=== PATIENT | female | born 1995 | race Caucasian/White ===

== ENCOUNTER 2024-04-22 08:11 | Emergency (ER) | payer OTHER, SELFPAY ==
--- NOTE | ~2024-04-22 | US_ITS ---
EXAMINATION: US PELVIS CLINICAL INFORMATION: Left ovary cyst, abnormal CT COMPARISON: CT abdomen and pelvis 04/14/2024 TECHNIQUE: Ultrasound of the pelvis is performed using both transabdominal and transvaginal transducers along with Doppler. Transvaginal imaging is performed due to inadequate visualization transabdominally. FINDINGS: Uterus: The uterus is anteverted and measures 8.3 x 3.4 x 4.5 in the sagittal, AP and transverse dimensions. The endometrium is homogeneous and mildly thickened measuring 1.7 cm. No focal myometrial lesions. Nabothian cysts in the cervix. Adnexa: Both ovaries are visualized. Right ovary measures 2.8 x 1.7 x 2.1 with a volume of 5 ml. Left ovary measures 3.1 x 2.6 x 2.2 with a volume of 9 ml. There is a corpus luteal cyst within the left ovary measuring 1.9 x 1.4 x 1.8 cm, for which no dedicated follow-up imaging is required. Normal arterial and venous spectral waveforms in bilateral ovaries. Small amount of pelvic free fluid likely physiologic. US/US pelvic ovarian doppler IMPRESSION: Small corpus luteal cyst within the left ovary, for which dedicated follow-up imaging is required. Otherwise unremarkable sonographic appearance of bilateral ovaries. Mildly thickened endometrium measuring up to 1.7 cm. Clinical correlation is recommended. Electronically signed by: Kvng Ng MD 04/22/2024 02:22 PM EDT
--- NOTE | ~2024-04-22 | US_ITS ---
EXAMINATION: US PELVIS CLINICAL INFORMATION: Left ovary cyst, abnormal CT COMPARISON: CT abdomen and pelvis 04/14/2024 TECHNIQUE: Ultrasound of the pelvis is performed using both transabdominal and transvaginal transducers along with Doppler. Transvaginal imaging is performed due to inadequate visualization transabdominally. FINDINGS: Uterus: The uterus is anteverted and measures 8.3 x 3.4 x 4.5 in the sagittal, AP and transverse dimensions. The endometrium is homogeneous and mildly thickened measuring 1.7 cm. No focal myometrial lesions. Nabothian cysts in the cervix. Adnexa: Both ovaries are visualized. Right ovary measures 2.8 x 1.7 x 2.1 with a volume of 5 ml. Left ovary measures 3.1 x 2.6 x 2.2 with a volume of 9 ml. There is a corpus luteal cyst within the left ovary measuring 1.9 x 1.4 x 1.8 cm, for which no dedicated follow-up imaging is required. Normal arterial and venous spectral waveforms in bilateral ovaries. Small amount of pelvic free fluid likely physiologic. US/US pelvic and transvaginal IMPRESSION: Small corpus luteal cyst within the left ovary, for which dedicated follow-up imaging is required. Otherwise unremarkable sonographic appearance of bilateral ovaries. Mildly thickened endometrium measuring up to 1.7 cm. Clinical correlation is recommended. Electronically signed by: Kvng Ng MD 04/22/2024 02:22 PM EDT
--- NOTE | ~2024-04-22 | CT_ITS ---
EXAMINATION: CT ABDOMEN AND PELVIS WITH CONTRAST CLINICAL INFORMATION: Abdominal pain and pelvic pain COMPARISON: None available. TECHNIQUE: Multidetector volumetric images were obtained from the superior aspect of the liver through the pubic symphysis following administration 85 mL of Omnipaque 350 intravenous contrast. Sagittal and coronal reformatted images were obtained on the technologist's workstation. Oral contrast: No This CT examination was performed using dose optimization techniques as appropriate, variously including the following: *Automated exposure control *Adjustment of mA and/or kV according to patient size (this includes techniques or standardized protocols for targeted exams where dose is matched to indication/reason for exam; i.e. extremities or head) *Use of iterative reconstruction technique DLP: 636 mGy-cm FINDINGS: LUNG BASES: The visualized lung bases are unremarkable. LIVER, GALLBLADDER, AND BILIARY TREE: The liver is normal in size, shape, and attenuation. No focal hepatic lesion or biliary ductal dilatation is present. The gallbladder is surgically absent. PANCREAS: Unremarkable. SPLEEN: Unremarkable. ADRENAL GLANDS: Unremarkable. KIDNEYS AND URETERS: The kidneys are normal in size, shape, and attenuation. No hydronephrosis, hydroureter, or calculi seen. No perinephric stranding. BLADDER: Unremarkable. GASTROINTESTINAL TRACT: There is a mild inflammatory change seen around the sigmoid which is decompressed. It is uncertain whether this is related to the sigmoid, or adjacent adnexal structures. Please see below comments regarding the left ovary. ABDOMINAL WALL: No significant hernia is appreciated. LYMPH NODES: Normal. VASCULAR: Unremarkable. PELVIC VISCERA: Collapsing cyst left ovary at 10 x 6 mm with surrounding induration of the left adnexa. Right adnexa and uterus unremarkable. Correlation with endovaginal ultrasound may be helpful. OSSEOUS STRUCTURES: Unremarkable. CT/CT abdomen pelvis w IV con IMPRESSION: Physiologic process left ovary. Stranding in the adjacent pelvic fat may be secondary to DISABILITY RATER process, or be related to the sigmoid which however does appear to be collapsed. Fleischner guidelines were followed. Electronically signed by: Vinicio Kerr MD 04/22/2024 11:48 AM EDT
[2024-04-22 08:18] VITALS: BP 145/82; PULSE 75; RESP 18; TEMP 36.6; O2SAT 98; BMI 25.8
[2024-04-22 08:37] LABS: MANUAL DIFF FLAG NO
[2024-04-22 08:44] LABS: Basophils Absolute Auto 0.1 X10*3/uL (0.0-0.2); Basophils Percent Auto 0.9 % (0-2); Eosinophils Absolute Auto 0.2 X10*3/uL (0.0-0.4); Eosinophils Percent Auto 2.3 % (0-4); Hematocrit 40.9 % (37.0-47.0); Hemoglobin 13.3 g/dl (12.0-16.0); Imm Gran Abs Auto 0.02 X10*3/uL (0.00-0.03); Imm Gran Pct Auto 0.3 % (0.0-0.4); Lymphocytes Absolute Auto 1.9 X10*3/uL (1.2-4.9); Lymphocytes Percent Auto 25.3 % (20-40); Mean Corpuscular HGB Conc 32.5 g/dl (31.0-35.0); Mean Corpuscular Hemoglobin 26.7 pg (27.0-33.0); Mean Corpuscular Volume 82.1 fL (80.0-98.0); Mean Platelet Volume 9.1 fL (9.4-12.3); Monocytes Absolute Auto 0.5 X10*3/uL (0.1-1.2); Monocytes Percent Auto 6.4 % (2-11); Neutrophils Absolute Auto 4.9 x10*3/uL (2.0-8.3); Neutrophils Percent Auto 64.8 % (45-73); Platelet Count 303 X10*3/uL (160-400); Red Blood Count 4.98 X10*6/uL (4.20-5.50); Red Cell Distribution Width 13.1 % (11.0-16.0); White Blood Count 7.6 X10*3/uL (4.8-10.8)
[2024-04-22 08:57] LABS: Lipase 146 U/L (8-78)
--- NOTE | 2024-04-22 08:57 | ED_ITS ---
HPI - Abdominal Pain General Chief Complaint: Abdominal Pain Stated Complaint: abd pain Time Seen by Provider: 04/22/24 08:57 Source: patient and RN notes reviewed Mode of arrival: ambulatory Limitations: no limitations History of Present Illness ED Provider: Inse Diamond PA-C HPI narrative: This is a 28-year-old female, with a history of cholecystectomy, who presents emergency department with complaints of left-sided upper abdominal pain for the last 3 days. Patient reports that the pain is waxing and waning, worsens with deep inspiration. Patient reports that she can feel pain radiating into her back. She denies any chest pain or shortness of breath. Reports last menstrual cycle was about 1 month ago, due in the next 6 days. She denies any fevers, chills, vomiting, nausea, urinary symptoms. No other complaints or concerns at this time. MD elicited complaint: abdominal pain Onset (ago): day(s) Pain Consistency: intermittent Location: LUQ Severity: moderate Quality: cramping Migration to: no migration Exacerbating factors: nothing Relieving factors: nothing Associated symptoms: denies other symptoms Related Data Previous Rx's ?Medication ?Instructions ?Recorded amoxicillin 875 mg-potassium 1 tab PO BID 7 days #14 tabs 04/22/24 clavulanate 125 mg tablet Allergies Allergy/AdvReac Type Severity Reaction Status Date / Time No Known Allergies Allergy Verified 04/22/24 08:19 Review of Systems Review of Systems Yes all other systems are reviewed and are negative Constitutional: Reports as per [facility] Social History Social History Advance Directives: No Do you have a plan to hurt others: No Plan Physical Exam ED Vital Signs: Vital Signs - 24 hr 04/22/24 08:18 04/22/24 11:53 04/22/24 15:03 Temperature 98 F 98.2 F Pulse Rate 75 96 99 Respiratory Rate 18 16 14 Blood Pressure 145/82 H 103/65 121/79 Pulse Oximetry 98 99 99 Oxygen Delivery Method Room Air Room Air Room Air BMI result Body Mass Index 25.8 Const General: cooperative, comfortable and no acute distress Orientation/consciousness: patient oriented x3 Limitations: no limitations HENMT Head: Yes normal to inspection, Yes normocephalic and Yes atraumatic Ears: hearing grossly normal bilaterally General nose exam: Normal external nose present Face and sinus: Yes normal facial exam Mouth: Normal oral and palatal mucosa present, oropharynx normal and moist mucous membranes Throat: Yes posterior oropharynx normal Eyes General: appearance normal, both eyes and all related structures Eyelids: Yes eyelids normal Conjunctivae: conjunctivae normal Sclerae: sclerae normal Pupils: Equal, round and reactive pupils present EOM: EOMs intact bilaterally Neck Neck: Yes normal visual inspection, Yes full ROM and Yes no lymphadenopathy Lymphatic: no lymphadenopathy noted Chest Chest palpation & inspection: normal inspection of the chest Resp Effort & Inspection: normal respiratory effort and able to speak in complete sentences Auscultation: clear to auscultation bilaterally, no crackles, no rales, no rhonchi and no wheezes Cardio Rate: regular rate Rhythm: regular rhythm Heart sounds: S1 normal heart sound present and S2 normal heart sound present GI Other: Tenderness palpation in the left upper abdomen. No rebound or guarding. Inspection: Yes normal to inspection Skin General skin exam: no rashes or lesions noted Trauma: no lacerations or abrasions Wounds: no wounds Neuro General: patient oriented x3 and moves all extremities Cranial nerves: Yes Equal, round and reactive pupils present Extrem General: Yes normal to inspection Right upper extremity: normal to inspection Left upper extremity: normal to inspection Right lower extremity: normal to inspection Left lower extremity: normal to inspection Course Reevaluation(s) Reevaluation #1: CT scan returns, revealing stranding in the adjacent pelvic fat, may be secondary to gallery or museum guide process, or may be related to sigmoid which however does appear to be collapsed. Time: 12:15 Reevaluation #2: Ultrasound returns, revealing a small corpus luteal cyst within the left ovary which a dedicated follow-up imaging is required. Otherwise normal sonographic appearance of bilateral ovaries. There is a mildly thickened endometrium, measuring up to 1.7 cm. I discussed case with my attending physician, Dr. Gupta who recommends starting on Augmentin given inflammation around the sigmoid colon and pain in this region.. Given some inflammation around the sigmoid colon, will treat as a colitis. Discussed case with patient as well as at bedside. Will start on Augmentin. Also advised follow-up with OBGYN, as well as PCP. Given referral to [facility] here at [facility]. Given strict return precautions, patient stable for discharge. Time: 14:28 Medical Decision Making Medical Decision Making MDM Narrative: This is a 28-year-old female who presents emergency department with complaints of left-sided abdominal pain for the last 3 days. On my initial assessment, patient eating, well-appearing, under no acute distress. Patient also endorses some nausea. Pain worsens with deep inspiration. She has no history of similar symptoms in the past. No urinary symptoms. Patient mildly hypertensive at 145/82, all other vital signs within normal limits. Differential diagnoses include pancreatitis, mononucleosis, gastritis, gastroenteritis, diverticulitis, diverticulosis, colitis Plan: Labs, urine, CT scan Differential Diagnosis Differential Diagnoses: The differential diagnosis associated with the presentation includes See above Admission/Observation Consideration of admission/observation: Escalation of care including admission/observation considered Lab Data MDM Lab Attestation statement: I reviewed the patient's lab results. No leukocytosis, stable H&H, chemistry revealing slight elevation ALT, troponin less than 2.7, lipase 146 04/22/24 08:23 04/22/24 08:23 Labs: Lab Results 04/22/24 04/22/24 Range/Units 08:23 09:39 WBC 7.6 (4.8-10.8) X10*3/uL RBC 4.98 (4.20-5.50) X10*6/uL Hgb 13.3 (12.0-16.0) g/dl Hct 40.9 (37.0-47.0) % MCV 82.1 (80.0-98.0) fL MCH 26.7 L (27.0-33.0) pg MCHC 32.5 (31.0-35.0) g/dl RDW 13.1 (11.0-16.0) % Plt Count 303 (160-400) X10*3/uL MPV 9.1 L (9.4-12.3) fL Immature Gran % (Auto) 0.3 (0.0-0.4) % Neut % (Auto) 64.8 (45-73) % Lymph % (Auto) 25.3 (20-40) % [place] % (Auto) 6.4 (2-11) % Eos % (Auto) 2.3 (0-4) % Baso % (Auto) 0.9 (0-2) % Lymph # (Auto) 1.9 (1.2-4.9) X10*3/uL [place] # (Auto) 0.5 (0.1-1.2) X10*3/uL Eos # (Auto) 0.2 (0.0-0.4) X10*3/uL Baso # (Auto) 0.1 (0.0-0.2) X10*3/uL Abs Immat Gran (auto) 0.02 (0.00-0.03) X10*3/uL Absolute Neuts (auto) 4.9 (2.0-8.3) x10*3/uL Absolute Nucleated RBC 0.000 (0.0-0.012) X10*3/uL Nucleated RBC % (auto) 0.0 (0.0-0.2) /100WBC Sodium 138 (135-145) mmol/L Potassium 3.7 (3.3-5.1) mmol/L Chloride 104 (96-108) mmol/L Carbon Dioxide 25 (22-29) mmol/L Anion Gap 13 (12-20) BUN 14 (9-16) mg/dL Creatinine 0.72 (0.5-1.4) mg/dL Estim Creat Clear Calc 121.6 Estimated GFR > 60 Random Glucose 104 (60-115) mg/dL Calcium 9.8 (8.4-10.2) mg/dL Total Bilirubin 0.3 (0.0-1.0) mg/dL AST 24 (5-31) U/L ALT 42 H (0-31) U/L Alkaline Phosphatase 66 (39-117) U/L Troponin I High Sens < 2.7 (<3.5-17.0) ng/L Total Protein 8.1 H (6.5-8.0) g/dL Albumin 4.5 (3.5-5.0) g/dL Lipase 146 H (8-78) U/L Beta HCG, Quant < 2 mIU/mL Urine Color Yellow Urine Appearance Cloudy Urine pH 5.5 (5.0-9.0) Ur Specific [place] 1.025 (1.005-1.025) Urine Protein Negative (Neg-Trace) mg/dL Urine Glucose (UA) Negative (Negative) mg/dL Urine Ketones Negative (Negative) mg/dL Urine Blood Negative (Negative) Urine Nitrite Negative (Negative) Ur Leukocyte Esterase Small (1+) H (Negative) Urine RBC 0-2 (0-2) /HPF Urine WBC 6-10 H (0-5) /HPF Ur Squamous Epith Cells 11-20 (0-2) /HPF Urine Bacteria 1+ (None Seen) Hyaline Casts 0-2 (0-2) /LPF Urine Test NEGATIVE (NEGATIVE) Monoscreen Negative (Negative) Radiology Impression Discussion of test interpretation with radiology: I have reviewed the radiologist's reading. External Record Review External record reviewed: Inpatient record, Office record, Outpatient record, Prior outpatient labs, Prior outpatient radiology, Primary care record and Outside ED record Medications Administered Discontinued Medications Generic Name Dose Route Start Last Admin Trade Name Freq PRN Reason Stop Dose Admin Sodium Chloride 1,000 mls @ 999 mls/hr 04/22/24 09:09 04/22/24 10:30 Ns IV 04/22/24 10:09 Infused .Q1H1M ONE Infusion Iohexol 100 ml 04/22/24 10:33 04/22/24 10:33 Iohexol 350 Mg/Ml 100 Ml Infus..Btl IV 04/22/24 10:34 85 ml ONCE ONE Administration Discharge Plan Discharge Clinical Impression: Colitis, Corpus luteum cyst Patient Disposition: Home, Self-Care Instructions: Colitis (ED) Additional Instructions: You were seen in the emergency department due to abdominal pain. Your CT scan does show inflammation around your sigmoid colon. This can be a virus that causes this. Given this information, we are treating you with Augmentin. Please take prescribed antibiotic as directed. Finish the entire course even if your symptoms improve. Please follow-up with your primary care physician. You also have a corpus luteum cyst, you need to follow-up with a OBGYN for follow-up. Call today to make an appointment. If any new or worsening symptoms occur including but not limited to worsening pain, fevers, chills, chest pain, shortness of breath, please return for re- evaluation. Prescriptions: New amoxicillin-pot clavulanate 875-125 mg tablet 1 tab PO BID 7 Days Qty: 14 0RF Referrals: [facility] [Provider Group] Discharge Date/Time: 04/22/24 15:03 Print Language: Vincentian
[2024-04-22 09:02] LABS: Alanine Aminotransferase 42 U/L (0-31); Albumin Level 4.5 g/dL (3.5-5.0); Alkaline Phosphatase 66 U/L (39-117); Anion Gap 13 (12-20); Aspartate Amino Transferase 24 U/L (5-31); Bilirubin Total 0.3 mg/dL (0.0-1.0); Blood Urea Nitrogen 14 mg/dL (9-16); Calcium 9.8 mg/dL (8.4-10.2); Carbon Dioxide 25 mmol/L (22-29); Chloride 104 mmol/L (96-108); Creatinine Clr Calc Pharmacy 121.6; Estimated Glomerular Filt Rate > 60; Glucose Random 104 mg/dL (60-115); Potassium 3.7 mmol/L (3.3-5.1); Sodium 138 mmol/L (135-145); Total Protein 8.1 g/dL (6.5-8.0)
--- NOTE | 2024-04-22 09:08 | ECG_ITS ---
Test Reason : ABD PAIN Blood Pressure : / mmHG Vent. Rate : 094 BPM Atrial Rate : 094 BPM P-R Int : 162 ms QRS Dur : 084 ms QT Int : 340 ms P-R-T Axes : 040 015 011 degrees QTc Int : 425 ms Normal sinus rhythm Normal ECG No previous ECGs available Referred By: Ines Diamond Electronically Signed By:KAT TAPIA
[2024-04-22] MEDS: 0.9 % Sodium Chloride 1,000 ML 999 ML IV (09:26)
[2024-04-22 09:47] LABS: Appearance Urine Cloudy; Color Urine Yellow; Glucose Urine UA Negative (Negative); Leukocyte Esterase Urine Small (1+) (Negative); Nitrite Urine Negative (Negative); PH 5.5 (5.0-9.0); Specific Gravity - Urine 1.025 (1.005-1.025); UMIC TRIGGER UACC YES; Urine Blood Negative (Negative); Urine Ketones Negative (Negative); Urine Protein Negative (Neg-Trace)
[2024-04-22 09:49] LABS: Bacteria Urine 1+ (None Seen); Hyaline Casts Urine 0-2 /LPF (0-2); RBC Urine 0-2 /HPF (0-2); UACC Culture Trigger YES
[2024-04-22 09:52] LABS: Troponin-I High Sensitivity < 2.7 ng/L (<3.5-17.0)
[2024-04-22 10:00] LABS: Monotest Negative (Negative)
[2024-04-22 10:20] LABS: HCG Quantitative < 2 mIU/mL
[2024-04-22] MEDS: iohexoL 350 MG/ML 100 ML INFUS..BTL IV (10:33)
[2024-04-22 11:44] LABS: UPreg QC Valid YES; Urine Pregnancy NEGATIVE (NEGATIVE)
[2024-04-22 11:53] VITALS: BP 103/65; PULSE 96; RESP 16; O2SAT 99
[2024-04-22 15:03] VITALS: BP 121/79; PULSE 99; RESP 14; TEMP 36.8; O2SAT 99
== END 2024-04-22 15:03 | disposition home or self-care (01) ==
PROVIDERS: Physician Assistant Medical; Emergency Provider Emergency Medicine Emergency Medical Services; PCP Nurse Practitioner Family
DX: K52.9 Noninfective gastroenteritis and colitis, unspecified (principal); N83.12 Corpus luteum cyst of left ovary; R10.12 Left upper quadrant pain
CPT/HCPCS: 36415; 74177; 76830; 76856; 80053; 81001; 81025; 83690; 84484; 84702; 85025; 86308; 87086; 93005; 93975; 96360; 99284; 99285; Q9967

== ENCOUNTER → 2024-08-05 14:00 | Outpatient (REF) | payer OTHER, SELFPAY | LOC: HO.SL 14:00 | PROVIDERS: PCP Nurse Practitioner Family; Visit Provider Nurse Practitioner Family | DX: R53.83 Other fatigue (principal); R06.83 Snoring | CPT/HCPCS: 95806 ==

== ENCOUNTER → 2024-08-05 19:00 | Outpatient (BNV) | payer OTHER, SELFPAY | PROVIDERS: PCP Nurse Practitioner Family; Visit Provider Internal Medicine | DX: R06.83 Snoring (principal); G47.10 Hypersomnia, unspecified | CPT/HCPCS: 95806 ==